=== PATIENT | male | born 1995 | race Caucasian/White ===

== ENCOUNTER 2018-04-19 20:53 | Emergency (ER) | payer OTHER ==
[~2018-04-19 20:53] MED LIST: CLINDAMYCIN PHO TOP; PERCOCET 325 MG1 TA2 PO; PREDNISONE10 M2 PO; PROTEIN1 PDR PO
[2018-04-19] MEDS ORDERED: AUGMENTIN 500-1 EACH PO (22:26)
--- NOTE | 2018-04-19 22:27 | ED ANIMAL BITE/WOUND CHECK ---
History of Present Illness General Chief Complaint: Animal/Insect Bite Stated Complaint: ?BEE STING/INSECT BITE Source: patient Exam Limitations: no limitations Vital Signs & Intake/Output Vital Signs & Intake/Output Vital Signs Date Time Temp Pulse Resp B/P B/P Pulse O2 O2 Flow FiO2 Mean Ox Delivery Rate 04/19 2059 97.9 59 16 126/73 98 Room Air Allergies Coded Allergies: NO KNOWN ALLERGIES (08/26/15) Reconcile Medications Augmentin (Augmentin 500-125 Tablet) 500 MG-125 MG TABLET 1 TAB PO BID CELLULITIS CLINDAMYCIN PHOS/BENZOYL PEROX (Clind pH-Benzoyl Perox 1.2-5%) 1 GEL GEL 1 DEEPALI TOP PRN ACNE (Reported) OXYCODONE HCL/ACETAMINOPHEN (Percocet 5-325 MG Tablet) 325 MG/5 MG TAB 1 TAB PO Q4 HRS NEEDED PRN PAIN Prednisone 10 MG TABLET 1 TAB PO DAILY inflammation 4 tabs for 3 days 3 tabs for 3 days 2 tabs for 3 days 1 tabs for 3 days PROTEIN SUPPLEMENT (Protein Powder) (Unknown Strength) PDR (Unknown Dose) PO DAILY PRE-WORKOUT (Reported) Triage Note: PT TO TRIAGE WITH ?BEE STING TO R FOREARM YESTERDAY, ARM PROGRESSIVELY GETTING MORE RED AND SWOLLEN PER PT. DENIES PREVIOUS ALLERGY TO BEES AND HAS BEEN STUNG BEFORE. Triage Nurses Notes Reviewed? yes Onset: Abrupt Duration: getting worse Timing: recent history Severity: mild Severity Numbers: 3 HPI: Patient is a 22-year-old male who presents emergency room for concerns of an unknown insect bites with right forearm yesterday where since she has noticed her sniffing pain and swelling region. Denies any specific insect however he thinks it was a bee denies any tongue swelling lip swelling itching complaints difficulty swallowing or breathing. Denies any fever chills. Denies any tick bite or foreign body retention to skin. Patient did not take any medications for symptoms Past History Travel History Traveled to [place] past 21 day No Medical History Any Pertinent Medical History? none Neurological: NONE EENT: NONE Cardiovascular: NONE Respiratory: NONE Gastrointestinal: NONE Hepatic: NONE Renal: NONE Musculoskeletal: NONE Psychiatric: NONE Endocrine: NONE Blood Disorders: NONE Cancer(s): NONE [employer]ATOR/Reproductive: NONE Surgical History Surgical History: FEMUR FRACTURE Psychosocial History What is your primary language French Tobacco Use: Never used ETOH Use: denies use Family History Hx Contributory? No Review of Systems Review of Systems Constitutional: Reports: no symptoms. EENTM: Reports: no symptoms. Respiratory: Reports: no symptoms. Cardiovascular: Reports: no symptoms. GI: Reports: no symptoms. Genitourinary: Reports: no symptoms. Musculoskeletal: Reports: see HPI. Skin: Reports: see HPI. Neurological/Psychological: Reports: no symptoms. Hematologic/Endocrine: Reports: no symptoms. Immunologic/Allergic: Reports: no symptoms. All Other Systems: Reviewed and Negative Physical Exam Physical Exam General Appearance: no apparent distress, alert, comfortable Head: atraumatic Eyes: Bilateral: normal appearance. Ears, Nose, Throat: normal ENT inspection, hearing grossly normal Respiratory: no respiratory distress Peripheral Pulses: 2+ radial (R) Neurologic/Psych: no motor/sensory deficits, awake Skin: intact Diagram Body: 1) Noted mild erythema warmth and point tenderness with noted puncture wound approximately 2 mm with no foreign body no fluctuance full active range of motion of elbow and wrist dermatomes intact Progress Differential Diagnosis: abscess, cellulitis, joint infection, tenosysnovitis Plan of Care: Differential diagnosis include tick bite insect bite No concerns of joint infection No signs of retained foreign body Departure Departure Disposition: HOME OR SELF CARE Condition: Stable Clinical Impression Primary Impression: Insect bite of forearm, right Referrals: Shubham YADAV,Jorge Javier (PCP/Family) Additional Instructions: Past discussed if symptoms worsen or IF YOU develop any new concerning symptoms such as worsening redness or fevers return to emergency room, Begin the prescription of Augmentin, prescriptions waiting at [facility]. Apply warm compresses the region begin [id number] ibuprofen for pain and inflammation Departure Forms: Customer Survey General Discharge Information Prescriptions: Current Visit Scripts Augmentin (Augmentin 500-125 Tablet) 1 TAB PO BID #14 TAB
[2018-04-19 22:42] VITALS: BP 122/67
== END 2018-04-19 22:42 ==
LOC: ERH 20:53
DX: S50.861A Insect bite (nonvenomous) of right forearm, initial encounter (principal); W57.XXXA Bitten or stung by nonvenomous insect and other nonvenomous arthropods, initial encounter